=== PATIENT | male | born 1990 | race Caucasian/White ===

== ENCOUNTER → 2024-01-12 | Outpatient (CLI) | payer SELFPAY | END | disposition home or self-care (01) | LOC: LABSPEC 15:57 | PROVIDERS: Referring Provider Physician Assistant; Visit Provider Physician Assistant | DX: R39.9 Unspecified symptoms and signs involving the genitourinary system (principal) | CPT/HCPCS: 87086 ==

== ENCOUNTER → 2024-02-10 | Outpatient (CLI) | payer SELFPAY | END | disposition home or self-care (01) | PROVIDERS: Referring Provider Surgery; Visit Provider Surgery | DX: Z01.818 Encounter for other preprocedural examination (principal) | CPT/HCPCS: 87077; 87081 ==

== ENCOUNTER 2024-02-27 09:02 | Day surgery (SDC) | payer SELFPAY ==
[2024-02-27] VITALS (10 sets, daily range): BP systolic 123–138; BP diastolic 66–87; PULSE 64–101; RESP 16; TEMP 36.2–36.9; O2SAT 92–100; BMI 25.2
--- NOTE | 2024-02-27 09:29 | PCM.PRE.AN2 ---
ASA Classification* ASA Classification ASA Classification: 2 Assessment & Plan Anesthesia* Anesthesia Assessment Anesthesia Assessment: Discussed sedation and/or anesthesia options, risks, benefits, and alternatives with patient/parents/legal guardian/POA. Questions invited. The patient/parents/legal guardian/POA seems to understand and agrees to proceed with anesthesia plan. Reviewed the physical assessment, medical history, allergy history and patient home medications list prior to surgery/procedure/anesthetic and documented any changes. Performed airway and anesthesia risk assessments. 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 When Was Last Pacemaker Check QUESTION #4 FULL TEXT: You/Your Family Experience fever (hyperthermia) with Anesthesia Last Oral Intake Last Oral intake: Last Oral Intake NPO since Meds taken in AM with sips of water? Meds patient instructed to take am of surgery PONV PONV - trolley operator: PONV - trolley operator Female No 02/20/24 13:14 HX of Motion Sickness No 02/20/24 13:14 HX of N/V After Surgery No 02/20/24 13:14 Non-Smoker Yes 02/20/24 13:14 Duration of Surgery greater Yes 02/20/24 13:14 than 60 minutes Number of Risk Factors 2 02/20/24 13:14 PONV Score Moderate Risk 02/20/24 13:14 Height & Weight Height & Weight: Anesthesia: Height & Weight Height 5 ft 10 in 02/10/24 13:41 Respiratory Assessment Respiratory Assessment - trolley operator: Respiratory Tract Infection Hx - trolley operator Hx Respiratory Tract Infection No 02/20/24 13:14 STOP Sleep Apnea STOP Sleep Apnea - trolley operator: STOP Sleep Apnea - trolley operator Hx Hypertension No 02/20/24 13:14 Hx Sleep Apnea No 02/20/24 13:14 CPAP BIPAP Do you snore loudly (louder No 02/20/24 13:14 than talking or can be heard Do you often feel tired/ No 02/20/24 13:14 fatigued/ sleepy during daytime? Has anyone observed you stop No 02/20/24 13:14 breathing during sleep? STOP Results Negative 02/20/24 13:14 QUESTION #5 FULL TEXT : Do you snore loudly (louder than talking or can be heard through closed doors)? 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 Specify any problems Hx of Preganancy in last 3 N/A 02/20/24 13:14 Months Nurse Filling Out Transfusion DSCHRIBER 02/20/24 13:14 & Questions: Date: 02/20/24 02/20/24 13:14 Time: 13:16 02/20/24 13:14 Patient unable to answer at this time (ie. confused, unrespo /Reproduction History /Reproductive History - trolley operator: /Reproductive Hx- trolley operator Hx Now No 02/20/24 13:14 Gestational Age (in weeks): EDC: Hx Hx Para Hx Section SAB No 02/20/24 13:14 Active Medications Active Medications: Current Medications Generic Name Dose Route Start Last Admin Trade Name Freq PRN Reason Stop Dose Admin Cefazolin Sodium 2 gm/ Sodium 110 mls @ 150 mls/hr 02/27/24 11:30 Chloride IV 02/27/24 12:13 PREOP ONE Lactated Ringer's 1,000 mls @ 15 mls/hr 02/27/24 09:15 IV .Q48H EMIR PFSH Medical History Migraine headache Non-smoker Home Medications ?Medication ?Instructions ?Recorded ?Last Taken ?Type mupirocin 2 % topical ointment 1 applic topical BID #15 grams 02/13/24 Unknown Rx Allergy/AdvReac Type Severity Reaction Status Date / Time No Known Allergies Allergy Verified 02/20/24 13:11 Surgical History No history of previous surgery Social History Smoking Status: Never smoker alcohol intake: never substance use type: does not use Review of Systems (Anesthesia) ROS Narrative System reviewed and no additional complaints, except as documented.
[2024-02-27] MEDS: Lactated Ringers 1,000 ML 15 ML IV (10:03)
--- NOTE | 2024-02-27 11:12 | PCM.HP.BLA ---
History and Physical Date of Admission: 02/27/24 Date of Service: 02/10/24 MR#: [id number] Acct: [id number] Name: JO DEE Rep #: [id number] : 1990 Provider: Dr. Douglas Stark MD Age/Sex: 33/M Location: [facility] Status: Signed Intake Vital Signs 01/11/2406:16 02/09/2413:41 Height 5 ft 10 in 5 ft 10 in Weight: 178 lb 179 lb BMI 25.5 25.7 BP 154/89 H 146/81 H Blood Pressure Location Rt brachial Rt brachial Position Sitting Sitting Respiration 18 Pulse 76 84 Pulse Source Monitor Monitor Temp 98.5 F 97.2 F L Temp Source Temporal Temporal Pulse Oximetry (%) 100 99 Oxygen Delivery Method room air Intake Visit Reasons: R INGUINAL HERNIA Chief Complaint: R inguinal hernia Accompanied by: Is patient in pain?: No Allergies No Known Allergies Allergy (Unverified 01/12/24 06:17) Medications ?Medication ?Instructions ?Recorded ?Confirmed ?Type NK 01/12/24 02/10/24 History Have you fallen in the past year?: No PFSH Social History (Updated 02/10/24 @ 13:41 by Arin Aden LPN) Smoking Status: Never smoker alcohol intake: never substance use type: does not use HPI HPI HPI: Patient is a 33-year-old male who presents for evaluation of a suspected right inguinal hernia. This finding was first noticed by patient 2 years ago. Patient is not able to recall how this occurred. He shares that previously he would have a little discomfort for a week or so and then go to the next 2 to 3 months with nothing. He states this pattern seem to change the first week of October when he began experiencing a little more discomfort for longer periods of time. He denies any observation of distinct bulging. He does share that the discomfort is worse with any heavy lifting or wearing tight underwear. 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 He specifically denies any change to his bowel habits. Apart from a history of hemorrhoids he denies any past medical history. He also denies any prior surgeries. He confirms that he was born term. Patient has no personal history of smoking. Patient has no personal history of recurrent cutaneous infections including staph. ROS General General: No weight change, appetite, fatigue, colon cancer, breast cancer or weakness HEENT HEENT: No difficulty swallowing, eye injury, eye surgery, swollen glands or hoarseness Endo Endocrine: No thyroid disease, diabetes mellitus, thyroid cancer, Hair loss, heat intolerance or cold intolerance Skin Skin: No rash or changing moles Musc Musculoskeletal: No back problems, arthritis, rheumatoid arthritis, gout or joint pain Cardio Cardiovascular: No murmur, pacemaker, heart disease, atrial fibrillation, high blood pressure, heart attack, heart stent, palpitations, shortness of breat with exertion or chest pain Psych Psychiatric: No depression, anxiety or hearing voices Resp Respiratory: No shortness of breath, No sleep apnea, No cough, No COPD, No asthma, No emphysema and No wheezing Gastro Gastrointestinal: No abdominal pain, No nausea or vomiting, No diarrhea, No constipation, No blood in stool, No acid reflux, No hemorrhoids, No ulcers, No gallbladder problem and No black,tarry stools Jp Hematologic: No blood thinners, No blood disorders, No bleeding, No anemia and No blood clots Neuro Neurologic: No numbness, No tingling and No weakness Exam Const General: cooperative and comfortable Orientation: alert, awake and oriented x3 Resp Effort & Inspection: normal respiratory effort GI Other: Slender, no scars, soft, nontender to palpation x 4 quadrants Other: Bilaterally descended testicles, no other masses, suspected indirect hernia defects bilaterally Assessment and Plan Assessment and Plan (1) Right inguinal hernia: Status: Acute Comment: Patient is a 33-year-old male with progressive pain complaints after first noticing discomfort 2 years ago. By exam he seems to have defects (indirect, bilaterally. We discussed the treatment for inguinal hernias and how this hinges around timing for surgical intervention. I shared that population?level data would suggest that the risk for emergency bowel entrapment would be low but that my ultimate recommendation would be to proceed with operative repair when he is able. I described the etiology for indirect hernias as originating with a persistence of the processes vaginalis versus a reopening. I described the process for operative repair via a minimally invasive transabdominal approach with mesh placement. I also stressed the need to refrain from exertional activity in the immediate postoperative period to allow for a cross-linking of the mesh to mitigate the risk for recurrence. Mr. Dee suggest waiting until the winter, but then adds that he is planning for a trip to [place] and would be in a vehicle for an extended period of time traveling. I sought to discourage this as a risk for DVT as well as his discomfort. Mr. Dee ultimately concluded that he would like to move forward sooner than later with repair. Plan: ? Robot-assisted transabdominal preperitoneal approach to right, probable bilateral hernias ? MRSA swab of the nares today to assess for any colonization I have examined the patient and the H&P has been reviewed. There are no clinical changes since date of exam. Procedure and post procedure expectations were reviewed. All questions were answered from patient and his spouse test particular as they pertain to specific activities postop. Will now proceed to the operating room for right, possible bilateral inguinal hernia repair via robot-assisted technique with mesh placement.
[2024-02-27] MEDS: Cefazolin 2 GM in 0.9% Normal Saline (100mL Bag) 100 ML IV (11:16)
--- NOTE | 2024-02-27 14:08 | OP.PCM_ITS ---
Report of Operation Date of Procedure: 02/27/24 Pre-Operative Diagnosis: Bilateral inguinal hernias Post-Operative Diagnosis: 1. Right cord lipoma 2. Left indirect inguinal hernia Surgery/Procedure Performed:: Robot-assisted bilateral inguinal hernia repair with mesh Description of Surgical Findings:: Small cord lipoma on the right rather than a true hernia Surgeon: Douglas Stark assembler installer general: Pankaj Wade Type of Anesthesia: General/Supplemental Anesthesiologist: Dexter Alberts Specimen's removed: none Estimated Blood Loss (mL): 10 Description of Procedure: After appropriate identification the preoperative holding area the patient was brought to the operating room where he was positioned supine on the operating table. Preoperative antibiotics were completed and the patient was administered a general anesthetic. Patient's abdomen was then prepped and draped in usual sterile fashion. Formal timeout followed to confirm patient and procedure. Procedure was begun with an optical entry facilitated by Veress insufflation at Michelle's point. Once pneumoperitoneum reached a set point pressure of 12 mmHg a left paramedian incision was made and a 8 mm robotic trocar was placed with a careful Optiview technique. Follow-up laparoscopic investigation revealed no inadvertent injury to the viscera below. A second port was placed a hand's breath right of this index port under laparoscopic visualization. A third and final port was placed in the right upper quadrant under laparoscopic visualization. Patient was positioned in slight Trendelenburg and I performed a local block of the ilioinguinal nerves bilaterally using 8 mL (4 mL x 2) local anesthetic under laparoscopic visualization. The robot was docked in standard fashion. In this positioning I could visualize a small indirect inguinal hernia defect on the left. However, despite the absence of any impressions on the peritoneum I decided to proceed with exploration of the right side given patient's reported symptoms and a suspicion for pathology along patient's spermatic cord. Robotically, a peritoneal flap was created on the right extending from the medial umbilical ligament to the level of the ASIS (external) and was bluntly dissected to expose the medial parietal compartment and lateral visceral compartments. Medially I could visualize the pubic tubercle and developed the space of Retzius while laterally my dissection was carried onto the psoas muscul ature and the peritoneal edge was dissected well back away from the internal ring. Through this dissection I was able to confirm that there was not evidence of either a direct defect or an indirect defect. Examining laterally to the cord I did identify a small cord lipoma which I placed on traction and use selective with monopolar energy to separate from the cord but allowed it to be suspended by its blood supply. I was able to clearly visualize the inverted V days by the splaying of the vas deferens medially and the spermatic vessels laterally. Just lateral to the spermatic vessels I did identify a small cord lipoma which I reduced and dissected off the spermatic cord. The peritoneal flap was inspected to ensure that cord was appropriately parietalized and there was no pulling of the cord structures or the viscera deeply over the psoas using the pull test. Then attention was turned to the patient's left side where there was evidence of dimpling of the peritoneum medial to the medial umbilical ligament. While this visually did not constitute a hernia it was abnormal and patient had previously complained of a bulge primarily with this laterality in mind. Therefore, again, a peritoneal flap was created on this side and dissection was carried down in similar fashion to Ajay's ligament medially and laterally over the psoas at the same depth. Here there was and no obvious hernia defect. However, lateral to the spermatic cord I did identify a large cord lipoma which was reduced and dissected off the cord with a combination of blunt dissection and selective energy usage. Because this cord lipoma appeared partially devascularized and at risk for altering the confirmation of her ventral mesh I elected to amputate it proximal to the internal ring after first applying bipolar energy to try to better ensure hemostasis. Again, I performed the pull test to ensure that there is no tenting of structures that may compromise the future mesh lie. Once satisfied, a Bard 3D max, size large, mid weight mesh was placed into the abdomen along with suture. It was positioned within the right preperitoneal pocket so that there was good medial and inferior overlap. It was then tacked to the admuniculum of the linea alba just superior to the pubic tubercle and laterally in a partial-thickness bite of the abdominal wall using a 3-0 Vicryl suture (above an imaginary line between the ASIS promontories). The peritoneal flap was then closed with a running 3-0 V-Loc suture taking care to conceal the barbs of the suture beneath the peritoneum. The patient's previous mesh was left adherent to the peritoneum and this was tucked behind the right medial umbilical ligament during closure to prevent exposure to the small bowel. There was a single peritoneal rent which was closed with an interrupted Vicryl suture. I then transitioned to the left side and obtained a second large, mid weight Bard 3D max mesh. This mesh was positioned into the preperitoneal space and tacked in similar fashion as was done on the right side using 3-0 Vicryl. The peritoneal flap was then closed with a new 3 oh V-Loc suture in a running fashion and locked by running back on itself. No perineal defects persisted after this flap closure. Sutures were systematically removed from the peritoneum as well as a placed Ray-Ginger. Lastly, the patient's left cord lipoma was delivered from the peritoneum in a specimen bag. I then made brief inspection of the peritoneum as discussed with patient preoperatively to see if there would be any evidence from this vantage point of his CT imaging concerns for possible small bowel narrowing. In the right lower quadrant I did identify a isolated segment of ileum that appeared to be strictured but not posing an obstruction. I confirmed this was well away from the area of the patient's appendix by following the tinea coli of the right colon and documented this finding with several pictures from the robotic camera. With this inspection c omplete, the pneumoperitoneum was evacuated before removing the trocars. The port sites were closed at the skin with running 4-0 Monocryl in a subcuticular fashion. Steri-Strips and OpSite's were used as dressings. Patient's testicles were confirmed within the scrotum. Patient was then awoken from anesthetic and transferred to PACU for ongoing recovery. After appropriate identification the preoperative holding area the patient was brought to the operating room where he was positioned supine on the operating table. Preoperative antibiotics were completed and the patient was administered a general anesthetic. Patient's abdomen was then prepped and draped in usual sterile fashion. Formal timeout followed to confirm patient and procedure. Procedure was begun with an optical entry facilitated by Veress insufflation at Michelle's point. Once pneumoperitoneum reached a set point pressure of 12 mmHg a right paramedian incision was made and a 8 mm robotic trocar was placed with a careful Optiview technique. Follow-up laparoscopic investigation revealed numerous adhesions to the anterior abdominal wall and visibility was restricted. Thus, the Veress needle was withdrawn and a robotic port was placed through this site. With these ports in place, patient was positioned in slight Trendelenburg and I began carefully taking down the omentum from the anterior abdominal wall. Readily became apparent that the majority of these adhesions were to the patient's previously-placed umbilical mesh which appeared to be in proper position with a flat lie. There did not appear to be any adhesions between the bowel and the anterior abdominal wall. However, when the patient was placed in further steeper Trendelenburg positioning I still was unable to visualize the internal rings therefore I placed the remaining robotic port in the right upper quadrant under laparoscopic visualization and the robot was docked in standard fashion. The robot console I spent time performing additional adhesiolysis between the patient's small bowel, omentum, and the anterior abdominal wall-in the location of patient's prior open appendectomy scar and then on the left side between the patient's sigmoid colon it anterior abdominal wall through the use of sharp scissors dissection and some limited cautery effect. In this positioning I could visualize a definite indirect inguinal hernia on the left but the bowel remained partially obstructing to the view so I requested my assistant boys track coach undocked the robot and anesthesia placed patient into steeper Trendelenburg positioning. This allowed some retraction of the bowel from the pelvis and under robotic guidance my assistant boys track coach performed a local block of the ilioinguinal nerves bilaterally. Unfortunately with closer inspection I discovered that had caused unavoidable rents in the peritoneum with my adhesiolysis process. Robotically, a peritoneal flap was created on the right extending from the medial umbilical ligament to the level of the ASIS ( external) and was bluntly dissected to expose the medial parietal compartment and lateral visceral compartments. Medially I could visualize the pubic tubercle and developed the space of Retzius which allowed me to extrapolate laterally in a favorable plane. There did not appear to be a indirect hernia sac nor any signs of significant cord lipoma, however, medially I did find a fat plug within a small direct defect which was removed. Then I extended the dissection down to the level of the psoas muscle and the visceral compartment. I was able to clearly visualize the inverted V by the splaying of the vas deferens medially and the spermatic vessels laterally. Just lateral to the spermatic vessels I did identify a small cord lipoma which I reduced and dissected off the spermatic cord, but generally I found the spermatic cord itself to be somewhat fatty. The peritoneal flap was inspected to ensure that cord was appropriately parietalized and there was no pulling of the cord structures or the viscera deeply over the psoas using the pull test. Attention was turned to the patient's left side where, again, a peritoneal flap was created and dissection was carried down in similar fashion to the space of Retzius medially and laterally over the psoas at the same depth. Here there was no obvious hernia defect but there was a significant amount of preperitoneal fat versus a fatty lymph node overlying the direct space. I attempted to place posterior traction on the structure to determine if I could establish an areolar plane anteriorly and thereby create a more optimal mesh groove. With this maneuver I was able to clearly establish the medial aspect of the femoral vein but the structure in which I placed traction began to do slightly and did not appear to be easily displaced. Therefore I moved more laterally to dissection of the patient's indirect inguinal hernia and placed traction on the hernia sac while sweeping away and using select electrocautery to relieve attachments to the hernia sac until it was fully reduced back to the level of the rest of the peritoneum. Lateral to the spermatic cord I did identify a large cord lipoma which was reduced and dissected off the cord with a combination of blunt dissection and selective energy usage. It was left intact within the preperitoneal pocket-remaining vascularized from its more proximal attachment. Again, I performed the pull test to ensure that there is no tenting of structures that may compromise the future mesh lie. There is some additional peritoneum directly overlying the cord structures and the vas which I dissected posteriorly. Once satisfied, 2 Bard 3D max, size large, mid weight meshes were placed into the abdomen along with suture. Each mesh was positioned within the respective preperitoneal pocket so that there was good medial and inferior overlap. The left mesh was then tacked to the admuniculum of the linea alba just superior to the pubic tubercle and laterally in a partial-thickness bite of the abdominal wall using a 3-0 Vicryl suture (above an imaginary line between the ASIS promontories). The right mesh was then tacked to Ajay's ligament medially and laterally as it had been done on the left side. The peritoneal flap on the right was then closed with a running 3-0 V-Loc suture taking care to conceal the barbs of the suture beneath the peritoneum. I then transitioned to the left side and closed the flap with a new 3-0 V-Loc suture in a running fashion and locked by running back on itself. There was a single peritoneal rent on the right as well as the generalized at tenuated status and this rent was closed with running 3-0 Vicryl suture. A small peritoneal rent was located in the upper inner aspect of the closure adjacent to the medial umbilical ligament and this was closed with a [id number] using a second 3-0 Vicryl suture. Lastly a larger rent adjacent to the sigmoid colon was closed with another running 3-0 Vicryl suture. With these closures no mesh was visible to the peritoneum. Sutures were systematically removed from the peritoneum. Pneumoperitoneum was evacuated and trocars were removed. The port sites were closed at the skin with running 4-0 Monocryl in a subcuticular fashion. Steri-Strips and OpSite's were used as dressings. Patient's testicles were confirmed within the scrotum. Patient was then awoken from anesthetic and transferred to PACU for ongoing recovery. After appropriate identification the preoperative holding area the patient was brought to the operating room where he was positioned supine on the operating table. Preoperative antibiotics were completed and the patient was administered a general anesthetic. Patient's abdomen was then prepped and draped in usual sterile fashion. Formal timeout followed to confirm patient and procedure. Procedure was begun with an optical entry facilitated by Veress insufflation at Michelle's point. Once pneumoperitoneum reached a set point pressure of 12 mmHg the Veress needle was withdrawn and a optical trocar was introduced through the same site revealing no inadvertent injury to the viscera below from our needle insertion. Next, a left paramedian incision was made and a 8 mm robotic trocar was placed with laparoscopic visualization. A third port was placed a hand's breath right of this port. Patient was positioned Trendelenburg and I performed a local block of the ilioinguinal nerves bilaterally using 8 mL local anesthetic under laparoscopic visualization. The robot was docked in standard fashion. In this positioning I could visualize 2 large direct inguinal hernia defects. Robotically, a peritoneal flap was created on the right extending from the medial umbilical ligament to the level of the ASIS (external) and was bluntly dissected to expose the medial parietal compartment and lateral visceral compartments. Medially I could visualize the pubic tubercle and developed the space of Retzius while laterally I dissected down to the level of the psoas musculature in the visceral compartment. Back in the parietal compartment medially I identified the hernia sac entering the direct space and gradually teased this away from the overlying fascia until it was fully reduced. There was some significant scar tissue medially adjacent to the inferior epigastric vasculature so this required some tedious dissection and limited cautery effect. There was no evidence of an indirect hernia and I was able to clearly visualize the inverted V days by the splaying of the vas deferens medially and the spermatic vessels laterally. Just lateral to the spermatic vessels I did identify a small cord lipoma which I reduced and dissected off the spermatic cord. The peritoneal flap was inspected to ensure that cord was appropriately parietalized and there was no pulling of the cord structures or the viscera deeply over the psoas using the pull test. Then attention was turned to the patient's left side where there was evidence of an even larger direct inguinal hernia. The bowel within this hernia had been manually reduced prior to docking the robot. Once again a peritoneal flap was created on this side and dissection was carried down in similar fashion to Ajay's ligament medially and laterally over the psoas at the same depth. Also once again I reduced patient's direct inguinal hernia sac with gentle traction and sweeping motions to keep the peritoneum intact. More laterally there were no signs of a indirect inguinal hernia defect. Again, I performed the pull test to ensure that there is no tenting of structures that may compromise the future mesh lie. Once satisfied, each direct defect was closed with a separate #1 STRATAFIX suture in a bidirectional fashion taking great care to avoid vascular injury to the inferior epigastric vessels as they were approached. Then 2 Bard 3D max, size large, mid weight meshes were placed into the abdomen along with suture. Each mesh was positioned within its respective preperitoneal pocket so that there was good medial and inferior overlap of the defects as well as the masses themselves, medially. The overlap of the meshes was tacked to the admuniculum of the linea alba just superior to the pubic tubercle and laterally in a partial-thickness bite of the abdominal wall using a 3-0 Vicryl suture. Each peritoneal flap was then closed with a running 3-0 V-Loc suture taking care to conceal the barbs of the suture beneath the peritoneum. With the formal portion of the operation complete the needles were sequentially removed from the peritoneal cavity and upon confirming a correct needle count, the pneumoperitoneum was evacuated before removing the trocars. The port sites were closed at the skin with running 4-0 Monocryl in a subcuticular fashion. Steri- Strips and OpSite's were used as dressings. Patient's testicles were confirmed within the scrotum. Patient was then awoken from anesthetic and transferred to PACU for ongoing recovery. Grafts/Implants Used: 3DMax R LOT [id number], [id number], L LOT [id number], [id number] Complications None
--- NOTE | 2024-02-27 14:08 | PCM.OPRPT ---
Report of Operation Date of Procedure: 02/27/24 Pre-Operative Diagnosis: Bilateral inguinal hernias Post-Operative Diagnosis: 1. Right cord lipoma 2. Left indirect inguinal hernia Surgery/Procedure Performed:: Robot-assisted bilateral inguinal hernia repair with mesh Description of Surgical Findings:: Small cord lipoma on the right rather than a true hernia Surgeon: Douglas Stark pier hand: Pankaj Wade Type of Anesthesia: General/Supplemental Anesthesiologist: Dexter Alberts Specimen's removed: none Estimated Blood Loss (mL): 10 Description of Procedure: After appropriate identification the preoperative holding area the patient was brought to the operating room where he was positioned supine on the operating table. Preoperative antibiotics were completed and the patient was administered a general anesthetic. Patient's abdomen was then prepped and draped in usual sterile fashion. Formal timeout followed to confirm patient and procedure. Procedure was begun with an optical entry facilitated by Veress insufflation at Michelle's point. Once pneumoperitoneum reached a set point pressure of 12 mmHg a left paramedian incision was made and a 8 mm robotic trocar was placed with a careful Optiview technique. Follow-up laparoscopic investigation revealed no inadvertent injury to the viscera below. A second port was placed a hand's breath right of this index port under laparoscopic visualization. A third and final port was placed in the right upper quadrant under laparoscopic visualization. Patient was positioned in slight Trendelenburg and I performed a local block of the ilioinguinal nerves bilaterally using 8 mL (4 mL x 2) local anesthetic under laparoscopic visualization. The robot was docked in standard fashion. In this positioning I could visualize a small indirect inguinal hernia defect on the left. However, despite the absence of any impressions on the peritoneum I decided to proceed with exploration of the right side given patient's reported symptoms and a suspicion for pathology along patient's spermatic cord. Robotically, a peritoneal flap was created on the right extending from the medial umbilical ligament to the level of the ASIS (external) and was bluntly dissected to expose the medial parietal compartment and lateral visceral compartments. Medially I could visualize the pubic tubercle and developed the space of Retzius while laterally my dissection was carried onto the psoas musculature and the peritoneal edge was dissected well back away from the internal ring. Through this dissection I was able to confirm that there was not evidence of either a direct defect or an indirect defect. Examining laterally to the cord I did identify a small cord lipoma which I placed on traction and use selective with monopolar energy to separate from the cord but allowed it to be suspended by its blood supply. Following this dissection I was able to clearly visualize the inverted V days by the splaying of the vas deferens medially and the spermatic vessels laterally. The peritoneal flap was inspected to ensure that cord was appropriately parietalized and there was no pulling of the cord structures or the viscera deeply over the psoas using the pull test. Then attention was turned to the patient's left side where there was evidence of dimpling of the peritoneum lateral to the internal ring consistent with a small indirect inguinal hernia. Here, again, a peritoneal flap was created and dissection was carried down in similar fashion to Ajay's ligament medially and laterally over the psoas at the same depth. A small indirect sac was from the underlying spermatic cord was selected of monopolar energy. I inspected for but not encounter a cord lipoma. Again, I performed the pull test to ensure that there was no tenting of structures that may compromise the future mesh lie. Once satisfied, a Bard 3D max, size large, mid weight mesh was placed into the abdomen along with suture. It was positioned within the right preperitoneal pocket so that there was good medial and inferior overlap. I then transitioned to the left side and obtained a second large, mid weight Bard 3D max mesh. This mesh was positioned into the preperitoneal space and both meshes were tacked together and medially to Ajay's ligament using 3-0 Vicryl. Laterally each mesh was fixated with a single interrupted between the mesh and the posterior abdominal wall. Lastly, a third point of fixation was made through the superior aspect of the admuniculum after a bite was taken of each mesh. The peritoneal flap on each side was then closed with a new 3-0 V-Loc suture in a running fashion and locked by running back on itself. There was a single peritoneal rent on the right which was closed with an interrupted Vicryl suture. Sutures were systematically removed from the peritoneum. With this complete, the pneumoperitoneum was evacuated before removing the trocars. The port sites were closed at the skin with running 4-0 Monocryl in a subcuticular fashion. The skin closure was completed with the ANVIL WORKER. Steri-Strips and OpSite's were used as dressings. Patient's testicles were confirmed within the scrotum. Patient was then awoken from anesthetic and transferred to PACU for ongoing recovery. Grafts/Implants Used: 3DMax R LOT [id number], [id number], L LOT [id number], [id number] Complications None Procedures Digestive 40xxx-49xxx: [id number] Lap ing hernia repair init
[2024-02-27] MEDS: Bupiv/Epi 0.25% 30 ML Vial (14:11)
--- NOTE | 2024-02-27 14:11 | EX.PCM.DISCH ---
Discharge Instructions Diet Discharge Diet: No restrictions Activity Discharge Activity: May Not Drive (While taking narcotic pain medication) and May Shower May shower in (days): 2 Ice area for (Minutes): 20 Lifting Restrictions: No lifting greater than 10 pounds for the next 5 weeks Dressing / Incision Call your doctor if your incision/area has: Continuous Slow Oozing, Increased Pain/ Swelling, Increased Redness, Foul Smelling Discharge and Swelling at the incision site Call your doctor if you observe: Fever of 101 or Higher, Inability to urinate and Inability to have a bowel movement Change Dressing in: 2 days (Please leave Steri-Strips intact until they fall off spontaneously or are taken off at your follow-up visit) Remove Dressing in: 2 days Cleanse incision/area with: Soap & Water and Keep Dressing Clean & Dry Follow Up Care Please Follow Up With: Douglas Stark MD When: 7-10 days postop Test Results: Test results from this visit will be discussed in further detail at your follow-up appointment, if applicable. Discharge Plan Admission Primary Reason for Your Visit: Inguinal hernia repair Attending Provider: Douglas Stark Primary Care Provider: Care Physician,Tatyana Primary Instructions Print Language: [place] Discharge Orders/Prescriptions Prescriptions: New oxycodone 5 mg tablet 5 mg PO Q6H PRN (Reason: pain) 3 Days Qty: 10 0RF Continued mupirocin 2 % ointment 1 applic topical BID Qty: 15 0RF Rx Instructions: Apply to a q-tip into bilateral nares twice daily for one week Referrals / Follow Up: Care Physician,No Primary [Primary Care Provider] - Disposition Disposition (needs filled in before D/C Order can be placed): Home, Self Care
--- NOTE | 2024-02-27 14:30 | PCM.POST.ANE ---
Anesthesia: Postop Eval I Current Vital Signs Temperature: 97.9 F Pulse Rate: 97 Blood Pressure: 138/81 Respiratory Rate: 16 Pulse Ox: 93 Assessment Airway patent: Yes Spontaneous unlabored respirations: Yes nausea: No Vomiting: No Anesthesia Complication: No Fluid Hydration Crystalloid volume administer (ml): 400 Total IV fluid infused: 400 Progress Note Anesthesia document: Postop Eval 1 completed: Yes
--- NOTE | 2024-02-27 16:31 | POSTOPAN2_ITS ---
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
--- NOTE | 2024-02-27 16:31 | PCM.POSTANE2 ---
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
[2024-02-27] MEDS: oxyCODONE 5 MG Tablet PO (16:40)
== END 2024-02-27 18:27 | disposition home or self-care (01) ==
LOC: SDC 09:08 → AC 09:11
PROVIDERS: Referring Provider Surgery; Visit Provider Surgery
PROC: (CPT 49650; principal; 2024-02-27 10:45)
DX: K40.90 Unilateral inguinal hernia, without obstruction or gangrene, not specified as recurrent (principal); D17.6 Benign lipomatous neoplasm of spermatic cord
CPT/HCPCS: 49650; S2900; 00840; J7120; J2405